=== PATIENT | female | born 1970 | race American Indian/Alaskan Native ===

== ENCOUNTER 2019-07-11 13:58 | Outpatient (CLI) | payer BC ==
--- NOTE | 2019-07-11 15:07 | XRay Report ---
CHEST 2 VIEWS INDICATION / CLINICAL INFORMATION: ACUTE BRONCHITIS, BACTERIAL J20.8. COMPARISON: None available. FINDINGS: SUPPORT DEVICES: None. HEART / MEDIASTINUM: No significant abnormality. LUNGS / PLEURA: No significant pulmonary or pleural abnormality. No pneumothorax. ADDITIONAL FINDINGS: No significant additional findings. IMPRESSION: 1. No acute findings. Signer Name: Bernabe Weiner MD Signed: 07/11/2019 3:02 PM Workstation Name: [id number]
== END 2019-07-11 13:59 | disposition home or self-care (01) ==
LOC: SPVIMAG 13:58
PROVIDERS: ATTEND Internal Medicine
DX: J20.8 Acute bronchitis due to other specified organisms (principal)
CPT/HCPCS: 71046